=== PATIENT | female | born 1975 ===

== ENCOUNTER 2025-04-08 10:13 | Outpatient (AMB) | payer OTHER, SELFPAY ==
--- NOTE | 2025-04-08 10:15 | MHC.OFFVIS ---
Intake Visit Reasons: migraine Allergies bupropion Allergy (Unknown, Verified 04/08/25 10:19) Unknown cobalt Allergy (Unknown, Verified 04/08/25 10:19) Unknown pantoprazole Allergy (Unknown, Verified 04/08/25 10:19) Unknown paroxetine Allergy (Unknown, Verified 04/08/25 10:19) Unknown sucralfate Allergy (Unknown, Verified 04/08/25 10:19) Unknown Medication List - Last Reconciled 04/08/25 by Ashley Terry CNP nouujtorvi-qbexdycxiottl-ivoq 50-325-40 mg 1 tab PO Q6H PRN cholecalciferol (vitamin D3) (Vitamin D3) 20 mcg PO DAILY cyclobenzaprine 10 mg PO BEDTIME PRN famotidine 20 mg PO DAILY verapamil ER 120 mg PO DAILY HPI Comments Details: She had 4 migraines in 02/2025. More migraines this month. Had migraine on 03/26 that started at night and had to call out of work on 03/27. Got another migraine with visual aura lasting about 45 minutes on 03/[address] home. Had migraine with visual aura on 03/29. Got another migraine 04/01. Most recently, had migraine on 04/06 with visual aura. Pain is usually left-sided, moderate to severe in intensity, throbbing-type, and is associated with photophobia, sonophobia, and nausea. Fioricet as needed helps most of the time. No specific triggers identified. Sleep was okay. Stress was about the same. 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 More headaches in early 2024 with 3-4 headaches/week, may be triggered by stress and lack of sleep. Triggers for headache include stress, tension, lack of sleep, glare, certain foods including MSG, caffeine, and chocolate, and around menstrual cycle. Fioricet works well for her, using 2 tab at onset and 1 every 4 hours, up to 4 tabs/migraine. Previously, migraines were about 1 every 3-4 weeks. Migraine headaches started at age 14. Headache is on either side, R > L, or in neck increased photosensitivity, sonophobia, and intolerance to certain smells. No nausea or vomiting. No aura. She has tried Imitrex, amitriptyline, and Depakote in the past. Several relatives on her mother's and father's side have migraines. [facility] Medical History (Updated 04/08/25 @ 10:19 by Ashley Terry CNP) Left ear hearing loss Tinnitus Depression Migraine Review of Systems Const Denies chills, Denies daytime sleepiness, Denies difficulty sleeping, Denies fatigue, Denies fever(s), Denies frequent falls, Reports headache(s), Denies increased appetite, Denies poor appetite, Denies snoring, Denies weakness, Denies weight gain and Denies weight loss Eyes Denies loss of vision ENT Denies vertigo, Denies dizziness, Reports headache(s) and Reports neck pain Card Denies chest pain at rest, Denies chest pain with activity, Denies syncope, Denies leg edema, Denies palpitations, Denies dyspnea and Denies dyspnea on exertion Resp Denies cough, Denies dyspnea, Denies dyspnea on exertion and Denies snoring GI Denies abdominal pain, Denies constipation, Denies heartburn, Denies diarrhea and Denies nausea Denies urinary frequency, Denies urinary incontinence and Denies urinary urgency Musc Denies abnormal gait, Reports back pain, Reports myalgias, Reports arthralgias, Reports neck pain, Denies numbness and Denies tingling Neuro Denies abnormal gait, Denies vertigo, Denies dizziness, Denies syncope, Denies frequent falls, Reports headache(s), Denies lack of coordination, Denies loss of vision, Reports memory loss, Denies numbness, Denies Other visual disturbances, Denies restless legs, Denies seizure-like activity, Denies tingling, Denies paresthesias, Denies tremor(s) and Denies weakness Psych Denies anxiety, Denies depression, Denies auditory hallucinations, Reports memory loss and Denies visual hallucinations Endo Denies fatigue and Denies palpitations Physical Exam Const Other: General Appearance:? normal, in no acute distress. Heart:? S1, S2 normal, no murmurs. Lungs:? clear anteriorly and posteriorly. Musculoskeletal:? normal. Extremities:? no edema. Psych:? alert, oriented, cognitive function intact, cooperative with exam. Neuro Other: Abnormal Neurological Findings:?none.? Mental Status: alert and oriented X 3. Normal attention, orientation, memory, and affect. Cranial Nerves: Pupils are equal, round, and reactive to light. External ocular muscles are intact. Visual carver are full, no ptosis. Face is symmetrical, no facial weakness or droop. Facial sensations are normal. Tongue protrudes in midline. Palate elevates symmetrically. Shoulder shrugging is normal Motor Examination: Normal muscle tone, bulk and strength. No atrophy or fasciculations. No drift of the extended upper extremities. DTR 2+. Plantars are flexor. Sensory Exam: Normal light touch, temperature, pinprick, vibration, and joint-position sensations. Rhomberg sign is absent. Coordination: No ataxia. No titubation. Kjlpqx-if-ykkq, bpdx-jhgd-wywv test, and rapid alternating movements were normal. Gait Exam: Within normal limits. Cerebellar Signs: Hxqrlb-de-qrzt and jdfd-he-docw is normal. No dysdiadochokinesia. Extrapyramidal System: No tremor, rigidity with normal facial expressions. No bradykinesia. No bradyphrenia. Normal arm swing and posture. No propulsion or retropulsion. Speech: Normal. No dysphasia or dysarthria. Results Reviewed Results Reviewed: Negative MRI brain Mar 2019 Assessment & Plan Assessment & Plan (1) Migraine: Code(s): G43.909 - Migraine, unspecified, not intractable, without status migrainosus Category: Medical Qualifiers: Intractability: not intractable Migraine type: unspecified Status migrainosus presence: without status migrainosus Qualified Code(s): G43.909 - Migraine, unspecified, not intractable, without status migrainosus Plan: Continue verapamil HCl ER 120mg 1 tablet daily Continue cmgerhcjqh-VEJL-ejnq 50-325-40mg 1 tablet q6h as needed for headache #20 for 30 days Start rizatriptan 10mg 1 tablet as needed for migraine, use/side effects reviewed Work note given. Plan Meds tried: Sumatriptan, tramadol, amitriptyline, depakote, propranolol, verapamil Medications: New rizatriptan take 1 tab at onset of headache; if no relief may repeat 1 tab after at least 4 hrs; max = 2 tabs/24 hr PO 10 tabs 5RF 30 days verapamil ER 120 mg PO DAILY 90 tabs 1RF 90 days Coding Level of Care Code Est Pt Level 4 (69434) Diagnoses Migraine without status migrainosus, not intractable, unspecified migraine type G43.909 Intractability: not intractable Migraine type: unspecified Status migrainosus presence: without status migrainosus
--- OUTSIDE RECORDS SUMMARY | 2025-04-08 11:29 | XMS_ITS ---
Author Name [facility] Organization Unknown Care Team Organization Name Specialty Phone Email Start Date End Da te [facility] JAMES SEXTON Primary [facility] 12/26/2022 04/08/2024 [facility] Eric Burdick [facility] 06/28/2022 04/08/2024
--- OUTSIDE RECORDS SUMMARY | 2025-04-08 11:29 | XMS_ITS | Clinical Summary ---
Author Organization [facility] Address [address] [place] [address] Phone Care Team Providers Care Tar Roofer Name Role Phone Sandra Rollins MD Primary Care Prov ider Allergies Active Allergy Reactions Criticality Noted Date Comments Antihistamines - Ethylenediamine 08/28/2024 Bupropion Numbness,Other 01/31/2008 Ethylenediamine Other 01/14/2021 Other 09/02/2024 quaternium-15 Pantoprazole Other 09/01/2014 Paroxetine Other,Wheezing 10/23/2006 Other Reaction(s): tunnel vision Quaternium 15 Other 01/14/2021 Rosin Other 01/14/2021 Shellfish Containing Products 06/14/2016 Sucralfate Other 09/01/2014 Sulfa (Sulfonamide Antibiotics) Other 08/28/2024 Medications cyclobenzapri ne (FLEXERIL) 10 mg tablet Take 1 tablet (10 mg total) by mouth at bedtime as needed for muscle spasms for up to 20 days. 20 tablet 025 Active verapamiL (CALAN) 40 mg tablet Take 1 tablet (40 mg total) by mouth 2 (two) times a day. Active butalbital-ac etaminophen-c affeine (FIORICET, ESGIC) 50-325-40 mg per tablet Take 1 tablet by mouth every 4 (four) hours if needed for headaches. Use no more than 5/day, 10/week, 30/month. 025 Active methocarbamoL (ROBAXIN) 500 mg tablet Take 1 tablet (500 mg total) by mouth 4 (four) times a day if needed for muscle spasms. 40 tablet 025 Active CHOLECALCIFER OL, VITAMIN D3, ORAL Take 1 tablet by mouth 1 (one) time each day. 024 Active EPINEPHrine (EpiPen 2-Joshua) 0.3 mg/0.3 mL injection INJECT 1 PEN (0.3MG) INTRAMUSCURALLY NEEDED FOR ANAPHYLAXIS *CALL 911 AFTER* 023 Active triamcinolone (KENALOG) 0.1 % ointment To affected area 2-3 times daily for no more than 2-3 weeks, then only using on the weekends prn Active acetaminophen (TYLENOL) 500 mg tablet Take 1 tablet (500 mg total) by mouth every 6 (six) hours if needed. 024 Active triamcinolone (KENALOG) 0.025 % cream Apply twice daily sparingly to the affected areas for 2 weeks. Active levonorgestre l (MIRENA UTRN) by Intrauterine route. Active BUTALBITAL, BULK, MISC 0 Refills, Maintenance, 03/13/24 20:19:00 EDT, Partial fill upon patient request if the prescription is for a schedule II opioid drug. 024 Active nicotine (NICODERM CQ) 21 mg/24 hrIndications :Tobacco use disorder Place 1 patch on the skin 1 (one) time each day at the same time. 30 each 025 Active nicotine polacrilex (NICORETTE) 4 mg gumIndication s:Tobacco use disorder Place 1 each (4 mg total) into mouth between cheek and gum every 2 (two) hours if needed for smoking cessation. 200 each 2 025 Active famotidine (PEPCID) 20 mg tablet TAKE 1 TABLET BY MOUTH EVERY DAY AT BEDTIME NEEDED FOR HEARTBURN 90 tablet 1 025 Active nystatin-tria mcinolone (MYCOLOG II) ointment 3-4x/day to affected area 30 g 1 025 Active famotidine (PEPCID) 20 mg tablet TAKE 1 TABLET BY MOUTH EVERY DAY AT BEDTIME NEEDED FOR HEARTBURN 90 tablet 1 025 2024 Discontinued metroNIDAZOLE (METROGEL) 0.75 % (37.5mg/5 gram) vaginal gel Insert 1 Applicatorful into the vagina at bedtime for 5 days. 45 g 025 2024 Discontinued fluconazole (DIFLUCAN) 150 mg tablet Take 1 tablet (150 mg total) by mouth 1 (one) time for 1 dose. 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 Otitis externa 05/30/2024 Otorrhea 05/30/2024 Candidal otitis externa 05/30/2024 Chronic mycotic otitis externa 05/30/2024 Sensorineural hearing loss 10/02/2020 Overview (09/02/2024): Sensorineural hearing loss, unilateral, left ear, with unrestricted hearing on the contralateral side; Note: Date Diagnosed: 10/02/2020 12:25 PM (H90.42) Tobacco use disorder 11/29/2018 Depression 06/26/2018 DJD (degenerative joint disease) of knee 018 Anxiety 06/26/2018 De Quervain's tenosynovitis 02/23/2018 Headache, migraine 01/01/2018 Helicobacter pylori gastritis 01/01/2018 Cervical radiculopathy 01/01/2018 Constipation 07/24/2017 Acute serous otitis media of right ear 7 Overview (09/02/2024): Acute serous otitis media, right ear; Note: Date Diagnosed: 07/20/2017 12:08 PM (H65.01) Abnormal findings on diagnos tic imaging of cardiovascular system 07/06/2017 Overview (09/02/2024): Feeling of foreign body in throat; Note: Date Diagnosed: 07/06/2017 10:23 AM (R09.89) Abnormal auditory perception 07/06/2017 Overview (09/02/2024): Other abnormal auditory perceptions, right ear; Note: Date Diagnosed: 07/06/2017 12:45 PM (H93.291) Unspecified abnormal finding in specimens from respiratory organs and thorax 07/06/2017 Overview (09/02/2024): Feeling of foreign body in throat; Note: Date Diagnosed: 07/06/2017 10:23 AM (R09.89) Bilateral impacted cerumen 07/06/2017 Overview (09/02/2024): Impacted cerumen, bilateral; Note: Date Diagnosed: 07/06/2017 12:44 PM (H61.23) Onychomycosis 10/25/2010 Encounters Date Type Department Care Team Description 04/05/2025 3:13 PM EDT - 04/05/2025 11:59 PM EDT Hospital Encounter [facility] Ultrasound [address] [place] [phone] Intrauterine contraceptive device threads lost, initial encounter Discharge Disposition: Home or Self Care 04/03/2025 10:15 AM EDT Office Visit Obstetrics and Gynecology - [address] [place] [address] Audie Castillo, PATRICIO Vaginal burning (Primary Dx); IUD check up; Intrauterine contraceptive device threads lost, initial encounter 02/28/2025 8:51 AM EDT - 02/28/2025 11:59 PM EDT Hospital Encounter Radiology Department [address] [phone] Encounter for screening mammogram for breast cancer Discharge Disposition: Home or Self Care 02/03/2025 9:33 PM EDT - 02/03/2025 11:44 PM EDT Emergency [facility] Emergency [address] [place] [phone] Discharge Disposition: Home or Self Care 02/03/2025 12:25 PM EDT - 02/03/2025 3:50 PM EDT Emergency [facility] Emergency [address] [place] [phone] Constipation, unspecified constipation type (Primary Dx) Discharge Disposition: Home or Self Care 02/03/2025 Telephone Adult [facility] [address] [place] [address] Sandra Herndon MD 01/21/2025 2:00 PM EDT Office Visit Adult [facility] [address] [place] [address] Sandra Herndon MD Routine general medical examination at a health care facility (Primary Dx); Tobacco use disorder from Last 3 Months Immunizations Name Administration Dates Next Due Influenza Quadrivalent, 0.5m l, preservative free (Fluarix; FluLaval; Fluzone) ages 6mo and older (Afluria) 3yo and older 05/26/2021 Influenza Quadrivalent, with preservative (Fluzone; Afluria) 6mo and older 06/07/2022 Influenza, Unspecified 06/05/2021 MMR, measles mumps and rubel la Live (Priorix; M-M-R II) 12mo and older 08/20/2013 Moderna SARS-CoV-2 COVID-19, mRNA, LNP-S, preservative free 04/05/2021,03/08/2021 PPD Test 05/29/2017, 6,05/25/2015,2009 Tdap Tetanus diptheria acell ular pertussis (Boostrix; Adacel) 7yo and older 12/26/2022,05/06/2009 Surgical History Surgery Date Site/Laterality Comments OTHER SURGICAL HISTORY PROCEDURE: DENIES PREVIOUS SURGERY Medical History Medical History Date Comments Anxiety 06/26/2018 DX:Anxiety Cervical radiculopathy 01/01/2018 DX:Cervic al radiculopathy Constipation 07/24/2017 DX:Constipation De Quervain's tenosynovitis 02/23/2018 DX:D e Quervain's tenosynovitis Depression 06/26/2018 DX:Depression DJD (degenerative joint dise ase) of knee 06/26/2018 DX:DJD (degenerative joint d isease) of knee Headache, migraine 01/01/2018 DX:Headache, migraine Helicobacter pylori gastritis 01/01/2018 DX :Helicobacter pylori gastritis History of duodenal ulcer 01/01/2018 DX:His tory of duodenal ulcer Onychomycosis 10/25/2010 DX:Onychomycosis DJD (degenerative joint dise ase) of knee DX:DJD (degenerative joint d isease) of knee Anxiety 06/26/2018 Family History Medical History Relation Name Comments No Known Problems Father Hypertension Mother Hyperthyroidism Mother Breast cancer Other m aunt dx'd in 60s Other: HTN Sister 1 Cancer of Small Bowel Neg Hx Colon cancer Neg Hx Kidney cancer Neg Hx Ovarian cancer Neg Hx Pancreatic cancer Neg Hx Prostate cancer Neg Hx Uterine cancer Neg Hx Relation Name Status Comments Brother Alive Father Alive Maternal Grandfather Maternal Grandmother Alive Mother Alive Other m aunt Alive ma aunt Paternal Grandfather Paternal Grandmother Sister 1 Alive Sister 2 Alive Sister 3 Alive Social History Tobacco Use Types Packs/Day Years Used Date Smoking Tobacco: Every Day Cigarettes Smokeless Tobacco: Never Tobacco Cessation:Ready to Q uit: Not Asked; Counseling Given: Not Answered Alcohol Use Standard Drinks/Week Comments No 0 (1 standard drink = 0.6 oz pur e alcohol) rarely Comments No Sex and Gender Information Value Date Recorded Sex Assigned at Female 04/03/2025 12:59 PM EDT Legal Sex Female 12:23 PM EST Gender Identity Female 04/03/2025 12:59 PM EDT Sexual Orientation Straight 04/03/2025 12 :59 PM EDT Obstetrics History Para Term AB IAB SAB Ectopic Multiple Livin g Live Births 3 3 2 1 2 2 Date Outcome GA Total Labor Labor/2nd/3rd Weight Sex Type Anes PTL Brianna A1 A5 Name Clin Term 993 Term 40w 4d M Vag-S pont Livin g Davont ay Delivery Location:[facility] 005 34w 3d M Vag-S pont Livin g Quamel Delivery Location:[facility] Comments:pre-eclampsia Last Filed Vital Signs Vital Sign Reading Time Taken Comments Blood Pressure 130/76 04/03/2025 10:10 AM EDT Pulse 78 04/03/2025 10:10 AM EDT Temperature 36.8 C (98.2 F) 02/03/2025 9:39 PM EDT Respiratory Rate 18 02/03/2025 9:39 PM EDT Oxygen Saturation 97% 02/03/2025 9:39 PM EDT Inhaled Oxygen Concentration - - Weight 83.2 kg (183 lb 6.4 oz) 04/03/2025 10:10 AM EDT Height 165.1 cm (5' 5 ) 04/03/2025 10:10 AM EDT Body Mass Index 30.52 04/03/2025 10:10 AM EDT Plan of Treatment Health Maintenance Due Date Last Done Comments Pneumococcal Vaccine: 50+ Years (1 of 2 - PCV) 1994 Zoster Vaccines (1 of 2) 2025 Influenza Vaccine (#1) 2025 2, 06/05/2021, 05/26/2021 Breast Cancer Screening 02/28/2027 02/29/20 25, 02/20/2024, 02/20/2024, Additional history exists Cervical Cancer Screening: HPV 12/21/2027 12/20/2022 Cholesterol Screening (Lipid Panel) 02/20/2029 02/21/2024, 02/21/2024 DTaP,Tdap,and Td Vaccines (3 - Td or Tdap) 12/26/2032 12/26/2022, 05/06/2009 Colorectal Cancer Screening: Colonoscopy 01/21/2035 01/21/2025 MMR Vaccines Aged Out 08/20/2013 No longer eligi ble based on patient's age to complete this topic COVID-19 Vaccine Discontinued 04/05/2021, 03/08/2021 HIV Screening Completed 02/09/2024, 02/09/2024 Hepatitis C Screening Completed 02/09/2024 Depression Screening Completed 01/21/2025 HIB Vaccines Aged Out No longer eligi ble based on patient's age to complete this topic HPV Vaccines Aged Out No longer eligi ble based on patient's age to complete this topic Hepatitis A Vaccines Aged Out No long er eligible based on patient's age to complete this topic Hepatitis B Vaccines Discontinued IPV Vaccines Aged Out No longer eligi ble based on patient's age to complete this topic Meningococcal ACWY Vaccine Aged Out N o longer eligible based on patient's age to complete this topic Meningococcal B Vaccine Aged Out No l onger eligible based on patient's age to complete this topic RSV Immunization Patients Under 20 months Aged Out No longer eligible based on patient's age to complete this topic Social Influencers of Health Screening Discontinued Varicella Vaccines Aged Out No longer eligible based on patient's age to complete this topic Procedures Procedure Name Priority Date/Time Associated Diagnosis Comments US PELVIS NON OB COMPLETE W TRANSVAGINAL Routine 04/05/2025 3:50 PM EDT Intrauterine contraceptive device threads lost, initial encounter TRICHOMONAS VAGINALIS ANTIGEN Routine 04/03/2025 10:41 AM EDT Vaginal burning WET PREP, GENITAL Routine 04/03/2025 10: 41 AM EDT Vaginal burning POC URINE AUTO W/O MICRO Routine 04/03/2025 10:20 AM EDT Vaginal burning MG MAMMO DIGITAL SCREENING W MIKA BILAT Routine 02/28/2025 9:09 AM EDT Encounter for screening mammogram for breast cancer XR ABDOMEN 1 VIEW STAT 02/03/2025 1:1 4 PM EDT CBC WITH AUTO DIFFERENTIAL STAT 02/03/2025 12:16 PM EDT COMPREHENSIVE METABOLIC PANEL STAT 02/03/2025 12:16 PM EDT CBC AND DIFFERENTIAL STAT 02/03/2025 12:16 PM EDT LIPID PANEL Routine 02/21/2024 HEPATITIS C SCREENING Routine 02/09/2024 HIV SCREENING Routine 02/09/2024 HPV Routine 12/20/2022 from Last 3 Months or Most Recently Relevant to Health Maintenance Results * US Pelvis Non OB Complete w Transvaginal (04/05/2025 3:50 PM EDT) Anatomical Region Laterality Modality Body, Pelvis Ultrasound 04/07/2025 10:1 2 AM EDT Impressions 04/07/2025 10:16 AM EDT Impression: 1. IUD well-positioned. 2. 2.8 cm fundal uterine leiomyoma. 3. Normal appearance to the ovaries for age. [employer]JI ([id number]) -------- FINAL REPORT -------- Dictated By: Manisha Nice Dictated Date: 04/07/2025 10:12 ET Assigned Physician: Manisha Nice Reviewed and Electronically Signed By: Manisha Nice Signed Date: 04/07/2025 10:16 ET Workstation ID: [id number] Transcribed By: Self Edit Transcribed Date: 04/07/2025 10:12 ET Narrative 04/07/2025 10:16 AM EDT History: 50-year-old 2 para 2, LMP 02/05/25, with nonvisualized IUD strings. Comparison: CT abdomen/pelvis 07/29/14 Findings: Transvesical imaging of the pelvis is supplemented with transvaginal imaging for better detail of the uterus and adnexa. The uterus measures 8.1 cm in length by 6.1 cm in depth by 5.9 cm in width. The endometrial echo complex measures 5 mm in thickness double layer. No endometrial fluid collections are seen. A T-shaped foreign body is seen within the fundal endometrial cavity, consistent with a well-positioned IUD. A circumscribed 2.3 x 2.8 x 2.6 cm solid mass is seen within the uterine fundus in the midline, compatible with a leiomyoma. There is no free fluid in the cul-de-sac. The right ovary measures 4.3 x 2.9 x 1.5 cm and the left ovary measures 2.5 x 2.2 x 2.1 cm. There is a 1.5 x 1.7 x 1.7 cm simple cyst in the left ovary. There is normal vascular flow within the ovaries by Doppler analysis. No adnexal masses are seen. Procedure Note Manisha Nice MD - 04/07/2025 History: 50-year-old 2 para 2, LMP 02/05/25, with nonvisualized IUDstrings. Comparison: CT abdomen/pelvis 07/29/14 Findings: Transvesical imaging of the pelvis is supplemented with transvaginalimaging for better detail of the uterus and adnexa. The uterus measures 8.1 cm in length by 6.1 cm in depth by 5.9 cm inwidth. The endometrial echo complex measures 5 mm in thickness doublelayer. No endometrial fluid collections are seen. A T-shaped foreign body is seen within the fundal endometrial cavity,consistent with a well-positioned IUD. A circumscribed 2.3 x 2.8 x 2.6 cm solid mass is seen within the uterinefundus in the midline, compatible with a leiomyoma. There is no free fluid in the cul-de-sac. The right ovary measures 4.3 x 2.9 x 1.5 cm and the left ovary measures2.5 x 2.2 x 2.1 cm. There is a 1.5 x 1.7 x 1.7 cm simple cyst in the leftovary. There is normal vascular flow within the ovaries by Doppleranalysis. No adnexal masses are seen. IMPRESSION: Impression: 1. IUD well-positioned. 2. 2.8 cm fundal uterine leiomyoma. 3. Normal appearance to the ovaries for age. [employer] [place] ([id number]) -------- FINAL REPORT -------- Dictated By: Manisha Nice Dictated Date: 04/07/2025 10:12 ET Assigned Physician: Manisha Nice Reviewed and Electronically Signed By: Manisha Nice Signed Date: 04/07/2025 10:16 ET Workstation ID: [id number] Transcribed By: Self Edit Transcribed Date: 04/07/2025 10:12 ET Audie Castillo CNM IMG US PROCEDURES Final Resul t * Trichomonas vaginalis antigen (04/03/2025 10:41 AM EDT) Trichomonas vaginalis Negative Negative 04/03/2025 3:08 PM EDT [facility] ([facility]) [facility] Swab Vaginal structure / Unknown Non-blood Collection / Unknown 04/03/2025 10:41 AM EDT 04/03/2025 10:41 AM EDT us Barla R Castillo CNM LAB MICROBIOLOGY - GENERAL OR DERABLES Final Result Performing Organization Address [facility]/ZIP Co de Phone Number [facility] [address] [place] [address], * (ABNORMAL) Wet prep, genital (04/03/2025 10:41 AM EDT) Clue Cells, Wet Prep Negative Negative 04/03/2025 2:[address] [facility] Yeast, Wet Prep Positive(A) Negative 04/03/2025 2:[address] [facility] Trichomonas, Wet Prep Indeterminate Negative 04/03/2025 2:[address] [facility] Comment:Refer to Trichomonas antigen. Swab Vaginal structure / Unknown Non-blood Collection / Unknown 04/03/2025 10:41 AM EDT 04/03/2025 10:41 AM EDT [facility] MICROBIOLOGY - GENERAL OR DERABLES Final Result Performing Organization Address [facility] Co de Phone Number [facility] [address] [place] [address], * (ABNORMAL) POC Urine Auto W/O Micro (04/03/2025 10:20 AM EDT) Glucose UA POC Negative Negative, Trace mg/dL Bilirubin UA POC Negative Negative Ketones UA POC Negative Negative Specific Tyler UA POC 1.010 Blood UA POC Moderate(A) Negative PH UA POC 7.5 Protein UA POC Negative Negative mg/dL Urobilinogen UA POC 0.2 E.U./dL 0.2 E.U./dL, 1.0 E.U./dL, 8 , Unable to interpret due to interfering substances mg/dL Nitrite UA POC Negative Negative Leukocytes UA POC Negative Negative Urine Urine specimen obtained by clean catch procedure / Unknown 04/03/2025 10:20 AM EDT Audie Castillo CNM POINT OF CARE TEST ENTER/EDIT ORDERABLES Final Result * MG Mammo Digital Screening w Mika bilat (02/28/2025 9:09 AM EDT) Anatomical Region Laterality Modality Breast Bilateral Mammography 03/03/2025 5:18 PM EDT Impressions 03/03/2025 5:19 PM EDT No mammographic evidence of malignancy. BREAST DENSITY: B - There are scattered areas of fibroglandular density. BI-RADS CATEGORY: 1 - NEGATIVE RECOMMENDATION: Screening bilateral mammogram is recommended in 1 year. MAMMO LOCATION: [facility], [address] [place] [address], [phone], . -------- FINAL REPORT -------- Dictated By: Madison Osborne Dictated Date: 03/03/2025 17:18 ET Assigned Physician: Madison Osborne Reviewed and Electronically Signed By: Madison Osborne Signed Date: 03/03/2025 17:19 ET Workstation ID: [id number] Transcribed By: Self Edit Transcribed Date: 03/03/2025 17:18 ET Narrative 03/03/2025 5:19 PM EDT EXAM: Screening Mammogram CLINICAL: 50 years old, Female, routine annual exam. COMPARISON: 03/09/2024 and as far back as 11/23/2020 TECHNIQUE: Bilateral MLO and CC views were obtained digitally with 3-D mammogram (digital breast tomosynthesis). Computer-aided detection was utilized in evaluation of this exam (CAD). FINDINGS: No new suspicious mass, architectural distortion, or suspicious calcifications. Procedure Note Madison Osborne MD - 03/03/2025 EXAM: Screening Mammogram CLINICAL: 50 years old, Female, routine annual exam. COMPARISON: 03/09/2024 and as far back as 11/23/2020 TECHNIQUE: Bilateral MLO and CC views were obtained digitally with 3-Dmammogram (digital breast tomosynthesis). Computer-aided detection wasutilized in evaluation of this exam (CAD). FINDINGS: No new suspicious mass, architectural distortion, or suspiciouscalcifications. IMPRESSION: No mammographic evidence of malignancy. BREAST DENSITY: B - There are scattered areas of fibroglandular density. BI-RADS CATEGORY: 1 - NEGATIVE RECOMMENDATION: Screening bilateral mammogram is recommended in 1 year. MAMMO LOCATION: [facility], [address] [place] [address], [phone], . -------- FINAL REPORT -------- Dictated By: Madison Osborne Dictated Date: 03/03/2025 17:18 ET Assigned Physician: Madison Osborne Reviewed and Electronically Signed By: Madison Osborne Signed Date: 03/03/2025 17:19 ET Workstation ID: [id number] Transcribed By: Self Edit Transcribed Date: 03/03/2025 17:18 ET us Sandra Rollins MD IMG BI PROCEDURES Final Result * XR Abdomen 1 View (02/03/2025 1:14 PM EDT) Anatomical Region Laterality Modality Body Radiographic Lynn ging 02/03/2025 2:51 PM EDT Impressions 02/03/2025 2:51 PM EDT FINDINGS/IMPRESSION: Prominent stool throughout the colon. No bowel obstruction. Phleboliths in the pelvis. -------- FINAL REPORT -------- Dictated By: Divina Jimenez Dictated Date: 02/03/2025 14:51 ET Assigned Physician: Divina Jimenez Reviewed and Electronically Signed By: Divina Jimenez Signed Date: 02/03/2025 14:51 ET Workstation ID: [id number] Transcribed By: Self Edit Transcribed Date: 02/03/2025 14:51 ET Narrative 02/03/2025 2:51 PM EDT XR ABDOMEN 1 VIEW INDICATION: pain, r/o obstructive pattern TECHNIQUE: XR ABDOMEN 1 VIEW COMPARISON: No priors available. Procedure Note Divina Jimenez MD - 02/03/2025 XR ABDOMEN 1 VIEW INDICATION: pain, r/o obstructive pattern TECHNIQUE: XR ABDOMEN 1 VIEW COMPARISON: No priors available. IMPRESSION: FINDINGS/IMPRESSION: Prominent stool throughout the colon. No bowelobstruction. Phleboliths in the pelvis. -------- FINAL REPORT -------- Dictated By: Divina Jimenez Dictated Date: 02/03/2025 14:51 ET Assigned Physician: Divina Jimenez Reviewed and Electronically Signed By: Divina Jimenez Signed Date: 02/03/2025 14:51 ET Workstation ID: [id number] Transcribed By: Self Edit Transcribed Date: 02/03/2025 14:51 ET Ondina MENDOZA IMG XR PROCEDURES Final Resul t * (ABNORMAL) CBC auto differential (02/03/2025 12:16 PM EDT) WBC 9.7 4.8 - 10.8 K/mcL LAB HEMETOLOGY METHOD 02/03/2025 2:[address] [facility] RBC 4.10 3.80 - 4.80 M/mcL LAB HEMETOLOGY METHOD 02/03/2025 2:[address] [facility] Hemoglobin 14.2 11.5 - 16.0 g/dL LAB HEMETOLOGY METHOD 02/03/2025 2:[address] [facility] Hematocrit 42.9 35.0 - 47.0 % LAB HEMETOLOGY METHOD 02/03/2025 2:[address] [facility] MCV 105.4(H) 79.0 - 98.0 FL LAB HEMETOLOGY METHOD 02/03/2025 2:[address] [facility] MCH 34.9(H) 27.0 - 32.0 pcg LAB HEMETOLOGY METHOD 02/03/2025 2:[address] [facility] MCHC 33.1 32.0 - 37.0 g/dL LAB HEMETOLOGY METHOD [facility] RDW 12.2 11.0 - 15.0 % LAB HEMETOLOGY METHOD [facility]03[facility]2025 [facility] Platelets 312 130 - 400 K/mcL LAB HEMETOLOGY METHOD 02/03/2025 2:23 PM [facility] MPV 9.8 7.0 - 11.0 FL LAB HEMETOLOGY METHOD 02/03/2025 2:23 PM [facility] NRBC 0.0 <1.0 % LAB HEMETOLOGY METHOD [facility]03[facility]2025 [facility] NRBC Absolute 0.00 <0.10 K/mcL LAB HEMETOLOGY METHOD 02/03/2025 2:23 PM [facility] Neutrophils Relative 58.4 % LAB HEMETOLOGY METHOD 02/03/2025 2:23 PM [facility] Lymphocytes Relative 35.8 % LAB HEMETOLOGY METHOD 02/03/2025 2:23 PM [facility] Monocytes Relative 3.3 % LAB HEMETOLOGY METHOD 02/03/2025 2:23 PM [facility] Eosinophils Relative 1.6 % LAB HEMETOLOGY METHOD 02/03/2025 2:23 PM [facility] Basophils Relative 0.6 % LAB HEMETOLOGY METHOD 02/03/2025 2:23 PM [facility] Immature Granulocytes Relative 0.3 % LAB HEMETOLOGY METHOD 02/03/2025 2:23 PM [facility] Neutrophils Absolute 5.66 1.50 - 7.00 K/mcL LAB HEMETOLOGY METHOD 02/03/2025 2:23 PM [facility] Lymphocytes Absolute 3.48 1.00 - 5.00 K/mcL LAB HEMETOLOGY METHOD 02/03/2025 2:23 PM [facility] Monocytes Absolute 0.32 0.20 - 1.00 K/mcL LAB HEMETOLOGY METHOD 02/03/2025 2:[address] [facility] Eosinophils Absolute 0.16 0.00 - 0.50 K/mcL LAB HEMETOLOGY METHOD 02/03/2025 2:[address] [facility] Basophils Absolute 0.06 0.00 - 0.20 K/mcL LAB HEMETOLOGY METHOD 02/03/2025 2:[address] [facility] Immature Granulocytes Absolute 0.03 0.00 - 0.03 K/mcL LAB HEMETOLOGY METHOD 02/03/2025 2:[address] [facility] Blood Venous blood specimen / Unknown Venipuncture / Unknown 02/03/2025 12:16 PM EDT 02/03/2025 2:23 PM EDT Jeff Gil DO LAB BLOOD ORDERABLES Final Result [facility] LAB [address] [place] [address], * (ABNORMAL) Comprehensive metabolic panel (02/03/2025 12:16 PM EDT) Sodium 133 133 - 145 mmol/L LAB CHEMISTRY METHOD 02/03/2025 1:21 PM [facility] Potassium 4.9 3.5 - 5.5 mmol/L LAB CHEMISTRY METHOD 02/03/2025 1:21 PM [facility] LAB Comment:Hemolysis present Chloride 106 96 - 110 mmol/L LAB CHEMISTRY METHOD 02/03/2025 1:21 PM [facility] CO2 22 21 - 32 mmol/L LAB CHEMISTRY METHOD 02/03/2025 1:21 PM [facility] Anion Gap 5 3 - 11 LAB CHEMISTRY METHOD 02/03/2025 1:21 PM [facility] Glucose 132(H) 70 - 100 mg/dL LAB CHE[facility]STR[facility] BUN 6 5 - 25 mg/dL LAB CHEMISTRY METHOD 02/03/2025 1:21 PM [facility] Creatinine 0.76 0.50 - 1.10 mg/dL LAB CHEMISTRY METHOD 02/03/2025 1:21 PM [facility] LAB eGFR 96 >=60 mL/min/1. 73m2 LAB CHEMISTRY METHOD 02/03/2025 1:21 PM [facility] LAB Comment:Calculation based on the Chronic Kidney Disease Epidemiology Collaboration (CKD-EPI) equation refit without adjustment for race. BUN/Creatinine Ratio 7.9 LAB CHEMISTRY METHOD 02/03/2025 1:21 PM [facility] Calcium 9.3 8.5 - 10.5 mg/dL LAB CHEMISTRY METHOD 02/03/2025 1:21 PM [facility] AST (SGOT) 43(H) 10 - 42 unit/L LAB CHEMISTRY METHOD 02/03/2025 1:21 PM [facility] LAB Comment:Hemolysis present ALT (SGPT) 52 10 - 60 unit/L LAB CHEMISTRY METHOD 02/03/2025 1:21 PM [facility] Alkaline Phosphatase 72 42 - 121 unit/L LAB CHEMISTRY METHOD 02/03/2025 1:21 PM [facility] Total Protein 7.4 6.0 - 8.0 g/dL LAB CHEMISTRY METHOD 02/03/2025 1:21 PM [facility] Albumin 4.0 3.2 - 5.0 g/dL LAB CHEMISTRY METHOD 02/03/2025 1:21 PM [facility] Total Bilirubin 0.4 0.0 - 1.4 mg/dL LAB CHEMISTRY METHOD 02/03/2025 1:21 PM [facility] Blood Venous blood specimen / Unknown Venipuncture / Unknown 02/03/2025 12:16 PM EDT 02/03/2025 12:42 PM EDT Jeff Gil DO LAB BLOOD ORDERABLES Final Result [facility] ([facility] [address] [place] [address], * Lipid panel (02/21/2024) [facility] LDL/HDL Ratio 3 0 - 4 Triglycerides 143 0 - 150 mg/dL Cholesterol 151 0 - 200 mg/dL HDL 61 >=40 mg/dL LDL Cholesterol 62 0 - 100 mg/dL Blood Venous blood specimen / Unknown Historical Provider LAB BLOOD ORDERABLES Lashanda l Result * HIV Screening (02/09/2024) [facility] HIV Screening abstracted Historical Provider HEALTH MAINTENANCE Final Result * Hepatitis C Screening (02/09/2024) [facility] Hepatitis C Screening abstracted Historical Provider HEALTH MAINTENANCE Final Result * Cervical Cancer Screening: HPV (12/20/2022) [facility] Cervical Cancer Screening: HPV abstracted, negative Historical Provider HEALTH MAINTENANCE Final Result from Last 3 Months or Most Recently Relevant to Health Maintenance Insurance [facility] Care Teams Tar Roofer Relationship Specialty Start Date End Date Sandra Rollins MD [address] [place] [id number] PCP - General Internal Medicine 08/28/24
== END 2025-04-08 10:53 | disposition home or self-care (01) ==
LOC: HO.HSM 10:13
PROVIDERS: PCP Internal Medicine; Visit Provider Registered Nurse
DX: G43.909 Migraine, unspecified, not intractable, without status migrainosus (principal)
CPT/HCPCS: 99214

== ENCOUNTER → 2025-04-08 10:13 | Outpatient (BNVA) | payer OTHER, SELFPAY | PROVIDERS: PCP Internal Medicine; Visit Provider Registered Nurse | DX: G43.909 Migraine, unspecified, not intractable, without status migrainosus (principal); Z79.899 Other long term (current) drug therapy | CPT/HCPCS: 99212 ==

== ENCOUNTER 2025-05-30 08:52 | Outpatient (AMB) | payer OTHER, SELFPAY ==
--- NOTE | 2025-05-30 09:03 | MHC.OFFVIS ---
Intake Visit Reasons: 6 weeks SERRATO Allergies bupropion Allergy (Unknown, Verified 05/30/25 09:04) Unknown cobalt Allergy (Unknown, Verified 05/30/25 09:04) Unknown pantoprazole Allergy (Unknown, Verified 05/30/25 09:04) Unknown paroxetine Allergy (Unknown, Verified 05/30/25 09:04) Unknown sucralfate Allergy (Unknown, Verified 05/30/25 09:04) Unknown Medication List - Last Reconciled 05/30/25 by Ashley Terry CNP jjueyxuxmb-cwbaicdryzvuc-dhmz 50-325-40 mg 1 tab PO Q6H PRN cholecalciferol (vitamin D3) (Vitamin D3) 20 mcg PO DAILY cyclobenzaprine 10 mg PO BEDTIME PRN famotidine 20 mg PO DAILY rizatriptan take 1 tab at onset of headache; if no relief may repeat 1 tab after at least 4 hrs; max = 2 tabs/24 hr PO 30 days verapamil ER 120 mg PO DAILY 90 days HPI Comments Details: She was doing okay. No major migraines and has not had to miss work in last 2 months. No auras. Few mild headaches each month. Had 6 headaches last month. Tried rizatriptan as needed without relief. Butalbital as needed helps, but was worried about running out of medication. Had 4 migraines in 02/2025. Had 5 migraines in 03/2025, with few lasting 1-2 days and few with visual auras. Had to miss work. Pain was usually left-sided, moderate to severe in intensity, throbbing-type, and is associated with photophobia, sonophobia, and nausea. Fioricet as needed helps most of the time. No specific triggers identified. Sleep was okay. Stress was about the same. 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 More headaches in early 2024 with 3-4 headaches/week, may be triggered by stress and lack of sleep. Triggers for headache include stress, tension, lack of sleep, glare, certain foods including MSG, caffeine, and chocolate, and around menstrual cycle. Fioricet works well for her, using 2 tab at onset and 1 every 4 hours, up to 4 tabs/migraine. Previously, migraines were about 1 every 3-4 weeks. Migraine headaches started at age 14. Headache is on either side, R > L, or in neck increased photosensitivity, sonophobia, and intolerance to certain smells. No nausea or vomiting. No aura. She has tried Imitrex, amitriptyline, and Depakote in the past. Several relatives on her mother's and father's side have migraines. [facility] Medical History (Updated 04/08/25 @ 10:19 by Ashley Terry CNP) Left ear hearing loss Tinnitus Depression Migraine Review of Systems Const Denies chills, Denies daytime sleepiness, Denies difficulty sleeping, Denies fatigue, Denies fever(s), Denies frequent falls, Reports headache(s), Denies increased appetite, Denies poor appetite, Denies snoring, Denies weakness, Denies weight gain and Denies weight loss Eyes Denies loss of vision ENT Denies vertigo, Denies dizziness, Reports headache(s) and Reports neck pain Card Denies chest pain at rest, Denies chest pain with activity, Denies syncope, Denies leg edema, Denies palpitations, Denies dyspnea and Denies dyspnea on exertion Resp Denies cough, Denies dyspnea, Denies dyspnea on exertion and Denies snoring GI Denies abdominal pain, Denies constipation, Denies heartburn, Denies diarrhea and Denies nausea Denies urinary frequency, Denies urinary incontinence and Denies urinary urgency Musc Denies abnormal gait, Reports back pain, Reports myalgias, Reports arthralgias, Reports neck pain, Denies numbness and Denies tingling Neuro Denies abnormal gait, Denies vertigo, Denies dizziness, Denies syncope, Denies frequent falls, Reports headache(s), Denies lack of coordination, Denies loss of vision, Reports memory loss, Denies numbness, Denies Other visual disturbances, Denies restless legs, Denies seizure-like activity, Denies tingling, Denies paresthesias, Denies tremor(s) and Denies weakness Psych Denies anxiety, Denies depression, Denies auditory hallucinations, Reports memory loss and Denies visual hallucinations Endo Denies fatigue and Denies palpitations Physical Exam Const Other: General Appearance:? normal, in no acute distress. Heart:? S1, S2 normal, no murmurs. Lungs:? clear anteriorly and posteriorly. Musculoskeletal:? normal. Extremities:? no edema. Psych:? alert, oriented, cognitive function intact, cooperative with exam. Neuro Other: Abnormal Neurological Findings:?none.? Mental Status: alert and oriented X 3. Normal attention, orientation, memory, and affect. Cranial Nerves: Pupils are equal, round, and reactive to light. External ocular muscles are intact. Visual carver are full, no ptosis. Face is symmetrical, no facial weakness or droop. Facial sensations are normal. Tongue protrudes in midline. Palate elevates symmetrically. Shoulder shrugging is normal Motor Examination: Normal muscle tone, bulk and strength. No atrophy or fasciculations. No drift of the extended upper extremities. DTR 2+. Plantars are flexor. Sensory Exam: Normal light touch, temperature, pinprick, vibration, and joint-position sensations. Rhomberg sign is absent. Coordination: No ataxia. No titubation. Ckicbd-my-qlqb, qpbn-xycr-ghdn test, and rapid alternating movements were normal. Gait Exam: Within normal limits. Cerebellar Signs: Nkbgau-lf-btcy and emzk-do-dckj is normal. No dysdiadochokinesia. Extrapyramidal System: No tremor, rigidity with normal facial expressions. No bradykinesia. No bradyphrenia. Normal arm swing and posture. No propulsion or retropulsion. Speech: Normal. No dysphasia or dysarthria. Results Reviewed Results Reviewed: Negative MRI brain Mar 2019 Assessment & Plan Assessment & Plan (1) Migraine: Code(s): G43.909 - Migraine, unspecified, not intractable, without status migrainosus Category: Medical Qualifiers: Intractability: not intractable Migraine type: unspecified Status migrainosus presence: without status migrainosus Qualified Code(s): G43.909 - Migraine, unspecified, not intractable, without status migrainosus Plan: Continue verapamil HCl ER 120mg 1 tablet daily Continue iciysanfuw-GTDT-juvl 50-325-40mg 1 tablet q6h as needed for headache #20 for 30 days Rizatriptan as needed did not help and medication was stopped. Plan Meds tried: Sumatriptan, tramadol, amitriptyline, depakote, propranolol, verapamil Medications: Discontinued rizatriptan Discontinued Reason: Doctor's Order take 1 tab at onset of headache; if no relief may repeat 1 tab after at least 4 hrs; max = 2 tabs/24 hr PO 30 days 10 tabs 5RF Coding Level of Care Code Est Pt Level 4 (95137) Diagnoses Migraine without status migrainosus, not intractable, unspecified migraine type G43.909 Intractability: not intractable Migraine type: unspecified Status migrainosus presence: without status migrainosus
== END 2025-05-30 09:16 | disposition home or self-care (01) ==
LOC: HO.HSM 08:53
PROVIDERS: PCP Internal Medicine; Visit Provider Registered Nurse
DX: G43.909 Migraine, unspecified, not intractable, without status migrainosus (principal)
CPT/HCPCS: 99214

== ENCOUNTER → 2025-05-30 08:52 | Outpatient (BNVA) | payer OTHER, SELFPAY | PROVIDERS: PCP Internal Medicine; Visit Provider Registered Nurse | DX: G43.909 Migraine, unspecified, not intractable, without status migrainosus (principal); Z79.899 Other long term (current) drug therapy | CPT/HCPCS: 99212 ==

== ENCOUNTER 2025-07-28 08:57 | Outpatient (AMB) | payer OTHER, SELFPAY ==
--- NOTE | 2025-07-28 09:00 | A.OFFVIS_ITS ---
Intake Visit Reasons: sooner appt Allergies bupropion Allergy (Unknown, Verified 07/28/25 09:01) Unknown cobalt Allergy (Unknown, Verified 07/28/25 09:01) Unknown pantoprazole Allergy (Unknown, Verified 07/28/25 09:01) Unknown paroxetine Allergy (Unknown, Verified 07/28/25 09:01) Unknown sucralfate Allergy (Unknown, Verified 07/28/25 09:01) Unknown Medication List - Last Reconciled 07/28/25 by Ashley Terry CNP aastsnpqot-udlapapvzvfkb-iayy 50-325-40 mg 1 tab PO Q6H PRN cholecalciferol (vitamin D3) (Vitamin D3) 20 mcg PO DAILY cyclobenzaprine 10 mg PO BEDTIME PRN famotidine 20 mg PO DAILY verapamil ER 120 mg PO DAILY 90 days HPI Comments Details: She had over 18 migraines in 06/2025. She had about 4 migraines so far this month. Migraines are still mostly left-sided, moderately severe in intensity, with throbbing-type pain and associated with photophobia, sonophobia, and nausea. Most migraines have been with visual aura, few migraines have been with unilateral numbness, L > R, which happen at beginning of migraine starting from feet up to side of face - unsure how long it lasts for. has to lay down in dark, quiet room. Butalbital as needed helps, but having more migraines and having to use med more often, worried about running out of medication before next refill due. Nurtec samples as needed helped, less severe and was able to sit up and function. No specific triggers identified. No recent illness, injury, or increased stress. Verapamil seemed to help for few months, 6 headaches in 04/2025. Rizatriptan as needed did not help. Butalbital as needed helped, but was worried about running out of medication. Had 4 migraines in 02/2025. Had 5 migraines in 03/2025, with few lasting 1-2 days and few with visual auras. Had to miss work. Pain was usually left-sided, moderate to severe in intensity, throbbing-type, and is associated with photophobia, sonophobia, and nausea. Fioricet as needed helps most of the time. No specific triggers identified. Sleep was okay. Stress was about the same. 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 More headaches in early 2024 with 3-4 headaches/week, may be triggered by stress and lack of sleep. Triggers for headache include stress, tension, lack of sleep, glare, certain foods including MSG, caffeine, and chocolate, and around menstrual cycle. Fioricet works well for her, using 2 tab at onset and 1 every 4 hours, up to 4 tabs/migraine. Previously, migraines were about 1 every 3-4 weeks. Migraine headaches started at age 14. Headache is on either side, R > L, or in neck increased photosensitivity, sonophobia, and intolerance to certain smells. No nausea or vomiting. No aura. She has tried Imitrex, amitriptyline, and Depakote in the past. Several relatives on her mother's and father's side have migraines. [facility] Medical History (Updated 04/08/25 @ 10:19 by Ashley Terry CNP) Left ear hearing loss Tinnitus Depression Migraine Review of Systems Const Denies chills, Denies daytime sleepiness, Denies difficulty sleeping, Denies fatigue, Denies fever(s), Denies frequent falls, Reports headache(s), Denies increased appetite, Denies poor appetite, Denies snoring, Denies weakness, Denies weight gain and Denies weight loss Eyes Denies loss of vision ENT Denies vertigo, Denies dizziness, Reports headache(s) and Reports neck pain Card Denies chest pain at rest, Denies chest pain with activity, Denies syncope, Denies leg edema, Denies palpitations, Denies dyspnea and Denies dyspnea on exertion Resp Denies cough, Denies dyspnea, Denies dyspnea on exertion and Denies snoring GI Denies abdominal pain, Denies constipation, Denies heartburn, Denies diarrhea and Denies nausea Denies urinary frequency, Denies urinary incontinence and Denies urinary urgency Musc Denies abnormal gait, Reports back pain, Reports myalgias, Reports arthralgias, Reports neck pain, Denies numbness and Denies tingling Neuro Denies abnormal gait, Denies vertigo, Denies dizziness, Denies syncope, Denies frequent falls, Reports headache(s), Denies lack of coordination, Denies loss of vision, Reports memory loss, Denies numbness, Denies Other visual disturbances, Denies restless legs, Denies seizure-like activity, Denies tingling, Denies paresthesias, Denies tremor(s) and Denies weakness Psych Denies anxiety, Denies depression, Denies auditory hallucinations, Reports memory loss and Denies visual hallucinations Endo Denies fatigue and Denies palpitations Physical Exam Const Other: General Appearance:? normal, in no acute distress. Heart:? S1, S2 normal, no murmurs. Lungs:? clear anteriorly and posteriorly. Musculoskeletal:? normal. Extremities:? no edema. Psych:? alert, oriented, cognitive function intact, cooperative with exam. Neuro Other: Abnormal Neurological Findings:?none.? Mental Status: alert and oriented X 3. Normal attention, orientation, memory, and affect. Cranial Nerves: Pupils are equal, round, and reactive to light. External ocular muscles are intact. Visual carver are full, no ptosis. Face is symmetrical, no facial weakness or droop. Facial sensations are normal. Tongue protrudes in midline. Palate elevates symmetrically. Shoulder shrugging is normal Motor Examination: Normal muscle tone, bulk and strength. No atrophy or fasciculations. No drift of the extended upper extremities. DTR 2+. Plantars are flexor. Sensory Exam: Normal light touch, temperature, pinprick, vibration, and joint- position sensations. Rhomberg sign is absent. Coordination: No ataxia. No titubation. Vsncwv-hq-rayo, lelm-ggsf-kgvt test, and rapid alternating movements were normal. Gait Exam: Within normal limits. Cerebellar Signs: Zzkfvt-py-fpon and iboi-pl-heda is normal. No dysdiadochokinesia. Extrapyramidal System: No tremor, rigidity with normal facial expressions. No bradykinesia. No bradyphrenia. Normal arm swing and posture. No propulsion or retropulsion. Speech: Normal. No dysphasia or dysarthria. Results Reviewed Results Reviewed: Negative MRI brain Mar 2019 Assessment & Plan Assessment & Plan (1) Migraine: Code(s): G43.909 - Migraine, unspecified, not intractable, without status migrainosus Category: Medical Qualifiers: Migraine type: unspecified Status migrainosus presence: without status migrainosus Intractability: not intractable Qualified Code(s): G43.909 - Migraine, unspecified, not intractable, without status migrainosus Plan: She was having more migraines over the last few months, with over 18 migraines in 06/2025, and about 4 migraines so far this month (as of 07/28/2025). No specific trigger or triggering event identified. Brain MRI and labs ordered due to worsening migraines. She has claustrophobia and open MRI was requested. She was given medication before previous MRI for unrelated problem to help with claustrophobia in the past which did not work, but she was unsure of medication/dose - she will call with this information so medication can be prescribed to take before MRI. She tried and failed multiple migraine prophylactics including amitriptyline, depakote, propranolol, and verapamil. Start Emgality 120mg/mL subcutaneous monthly, use/side effects reviewed. In the meantime, continue verapamil HCl ER 120mg 1 tablet daily Continue churtikulk-GCQZ-blwc 50-325-40mg 1 tablet q6h as needed for headache, increase #22 (from #20) for 30 days Follow up after testing or sooner as needed. Plan Meds tried: Sumatriptan, rizatriptan, tramadol, butalbital, nurtec, amitriptyline, depakote, propranolol, verapamil Orders: Orders MR head/brain wo con Today G43.909 - Migraine, unspecified, not intractable, without status migrainosus C Reactive Protein Today G43.909 - Migraine, unspecified, not intractable, without status migrainosus Erythrocyte Sedimentation Rate Today G43.909 - Migraine, unspecified, not intractable, without status migrainosus Medications: New galcanezumab-gnlm (Emgality Pen) loading dose 120 mg subcut QMONTH 2 mL 0RF 30 days galcanezumab-gnlm (Emgality Pen) 120 mg subcut QMONTH 1 mL 5RF 30 days Changed From fwihwoyjsx-rafvzpjrtdfes-txeu 50-325-40 mg 1 tab PO Q6H PRN To nyouplhmci-ijgbggswajmoi-orhx 50-325-40 mg 1 tab PO Q6H PRN 22 tabs 3RF headache 30 days Coding Level of Care Code Est Pt Level 4 (86872) Diagnoses Migraine without status migrainosus, not intractable, unspecified migraine type G43.909 Migraine type: unspecified Status migrainosus presence: without status migrainosus Intractability: not intractable
== END 2025-07-28 09:25 | disposition home or self-care (01) ==
LOC: HO.HSM 08:57
PROVIDERS: PCP Internal Medicine; Visit Provider Registered Nurse
DX: G43.909 Migraine, unspecified, not intractable, without status migrainosus (principal)
CPT/HCPCS: 99214

== ENCOUNTER → 2025-07-28 08:57 | Outpatient (BNVA) | payer OTHER, SELFPAY | PROVIDERS: PCP Internal Medicine; Visit Provider Registered Nurse | DX: G43.909 Migraine, unspecified, not intractable, without status migrainosus (principal); Z79.899 Other long term (current) drug therapy | CPT/HCPCS: 99212 ==